=== PATIENT | male | born 2000 | race Two or more races ===

== ENCOUNTER 2024-05-19 13:53 | Outpatient (AMB) | payer OTHER, SELFPAY ==
--- NOTE | 2024-05-19 13:56 | A.OFFVIS_ITS ---
Vital Signs 05/19/24 14:02 Height 5 ft 9 in Weight 149 lb 14.629 oz BMI 22.1 BP 114/73 Blood Pressure Location Lt brachial Position Sitting Pulse 91 Intake Visit Reasons: Crohn's Disease Intake Note: Saleem presents in the office as a new patient for crohns colitis. CC: He is here today to establish new care as the old Dr dont take insurance anymore. Does remicade infusion every 8 weeks Allergies seafood Allergy (Mild, Uncoded 05/19/24 14:06) Unknown HPI Comments Details: 24 y.o M who is here to establish care for crohsn disease. IBD history: Age/year: 11y.o/2000 (dx in [place]) location: colon Prior med: MTX, infliximab Current meds: infliximab 10mg/kg - 04/07/24 last infusion Steroid use: Recurrent. Most recently 2021 Endoscopy: ?EGD/Colonoscopy November, (as documented in [facility] note). Mild gastritis. Mild chronic colitis. T.I bx normal. Surgeries: none Fam hx: none EIM: skin rash dx as eczema Currently reports no abd pain, N/V,D. No blood in stool. Has 2-3 formed BMs per day. Sometimes gets knee pain if lifts heavy Last derm check was early 2023 - discharged due to no lesions. Review of Systems Const All systems reviewed & are unremarkable except as noted in HPI and below Physical Exam Vital Signs: Last Vital Signs Pulse 91 05/19/24 14:02 BP 114/73 05/19/24 14:02 BMI result Body Mass Index 22.1 young male NAD No resp distress abd soft nontender Assessment & Plan Assessment & Plan (1) Crohn's colitis: Code(s): K50.10 - Crohn's disease of large intestine without complications Category: Medical Plan Reviewed with the pt that clinically appears to be in remission. Will need records from [facility] re med and dosage - seems to be on an infliximab biosimilar per his recall. Next dose due 06/02. We will also obtain baseline labs for our records as well as fecal calpro + CRP for disease activity. * Crohns colitis - in clinica remission. - Check CBC, CMP - CRP, fecal calpro - Will check exact med ??biosimilar with prev GI. Next dose due 06/02. * Nutrition: - No evidenec of small bowel disease. - Will check iron, B12 and folate * Bone health: - Hx of steroid use. Check vit D. Consider dexa if never done. * Dysplasia screening: - Overdue for IBD dysplasia screening. Will book colo with chromo if fecal calpro normal i.e disease not active. Follow up 3 months Orders: Orders Comprehensive Met. Panel 05/19/24 K50.10 - Crohn's disease of large intestine without complications IRON PROFILE 05/19/24 K50.10 - Crohn's disease of large intestine without complications TSH reflex Free T4 05/19/24 K50.10 - Crohn's disease of large intestine without complications Hepatitis A IgG 05/19/24 K50.10 - Crohn's disease of large intestine without complications Hepatitis B Surface Antibody 05/19/24 K50.10 - Crohn's disease of large intestine without complications Hepatitis B Surface Antigen 05/19/24 K50.10 - Crohn's disease of large intestine without complications Calprotectin, Fecal 05/19/24 K50.10 - Crohn's disease of large intestine without complications Prothrombin Time INR 05/19/24 K50.10 - Crohn's disease of large intestine without complications Complete Blood Count no Diff 05/19/24 K50.10 - Crohn's disease of large intestine without complications Vitamin D 25-OH Total 05/19/24 K50.10 - Crohn's disease of large intestine without complications Vitamin B12 and Folate 05/19/24 K50.10 - Crohn's disease of large intestine without complications Transglutaminase IgA 05/19/24 K50.10 - Crohn's disease of large intestine without complications Immunoglobulin A 05/19/24 K50.10 - Crohn's disease of large intestine without complications Hepatitis B Core Antibody 05/19/24 K50.10 - Crohn's disease of large intestine without complications Hepatitis C Antibody 05/19/24 K50.10 - Crohn's disease of large intestine without complications C Reactive Protein 05/19/24 K50.10 - Crohn's disease of large intestine without complications T Spot TB 05/19/24 K50.10 - Crohn's disease of large intestine without complications Thiopurine Methyltransferase 05/19/24 K50.10 - Crohn's disease of large intestine without complications Coding Level of Care Code New Pt Level 5 (15017) Diagnoses Crohn's colitis K50.10
[2024-05-19 14:02] VITALS: BP 114/73; PULSE 91; BMI 22.1
== END 2024-05-19 15:15 | disposition home or self-care (01) ==
PROVIDERS: PCP Internal Medicine; Visit Provider Internal Medicine
DX: K50.10 Crohn's disease of large intestine without complications (principal)
CPT/HCPCS: 99204

== ENCOUNTER → 2024-05-19 13:53 | Outpatient (BNVA) | payer OTHER, SELFPAY | PROVIDERS: PCP Internal Medicine; Visit Provider Internal Medicine | DX: K50.10 Crohn's disease of large intestine without complications (principal) | CPT/HCPCS: 99202 ==

== ENCOUNTER 2024-06-21 11:59 | Outpatient (REF) | payer OTHER, SELFPAY ==
[2024-06-21 12:44] LABS: MANUAL DIFF FLAG NO
[2024-06-21 13:44] LABS: Basophils Percent Auto 0.3 % (0-2); Eosinophils Absolute Auto 0.2 X10*3/uL (0.0-0.4); Eosinophils Percent Auto 2.3 % (0-4); Hematocrit 45.8 % (42.0-52.0); Hemoglobin 15.4 g/dl (14.0-18.0); Imm Gran Abs Auto 0.06 X10*3/uL (0.00-0.03); Imm Gran Pct Auto 0.9 % (0.0-0.4); Lymphocytes Percent Auto 30.7 % (20-40); Mean Corpuscular HGB Conc 33.6 g/dl (31.0-36.0); Mean Corpuscular Hemoglobin 29.7 pg (27.0-33.0); Mean Corpuscular Volume 88.4 fL (80.0-98.0); Mean Platelet Volume 10.6 fL (9.4-12.4); Monocytes Absolute Auto 0.7 X10*3/uL (0.1-1.2); Monocytes Percent Auto 10.7 % (2-11); Neutrophils Absolute Auto 3.5 x10*3/uL (2.0-8.3); Neutrophils Percent Auto 55.1 % (45-73); Platelet Count 252 X10*3/uL (160-400); Red Blood Count 5.18 X10*6/uL (4.60-5.80); Red Cell Distribution Width 12.1 % (11.0-16.0); White Blood Count 6.4 X10*3/uL (4.8-10.8)
[2024-06-21 13:47] LABS: Prothrombin Time 11.8 SEC (10.9-12.4)
[2024-06-21 14:06] LABS: C Reactive Protein 0.65 mg/dL (< or = 0.50)
[2024-06-21 14:19] LABS: Alanine Aminotransferase 27 U/L (0-40); Albumin Level 4.1 g/dL (3.5-5.0); Alkaline Phosphatase 124 U/L (39-117); Anion Gap 12 (12-20); Aspartate Amino Transferase 16 U/L (5-37); Bilirubin Total 0.5 mg/dL (0.0-1.0); Blood Urea Nitrogen 9 mg/dL (9-16); Calcium 9.3 mg/dL (8.4-10.2); Carbon Dioxide 28 mmol/L (22-29); Chloride 106 mmol/L (96-108); Estimated Glomerular Filt Rate > 60; Glucose Random 83 mg/dL (60-115); Iron 109 mcg/dL (45-160); Percent Iron Saturation 36 % (15-50); Potassium 4.1 mmol/L (3.3-5.1); Sodium 142 mmol/L (135-145); Total Iron Binding Capacity 302 mcg/dL (228-428); Total Protein 7.7 g/dL (6.5-8.0); Unsaturated Iron Binding 193 ug/dL
[2024-06-21 14:26] LABS: HBc Num1 0.09 S/CO (0.00-0.79); HBsAGNum1 0.29 S/CO (0.00-0.99); Hepatitis A Antibody IgM 0.24 Index (0-0.79); Hepatitis B Core Antibody Nonreactive (Nonreactive); Hepatitis B Surface Antigen Negative (Negative); ~HepC Num1 0.09 S/CO (0.00-0.79); ~Hepatitis A Antibody IgM Nonreactive (Nonreactive); ~Hepatitis C Antibody Nonreactive (Nonreactive)
[2024-06-21 14:31] LABS: TSH reflex Free T4 0.61 uIU/mL (0.32-4.0); Vitamin D 25-OH Total 29.5 ng/mL (>30)
[2024-06-21 14:33] LABS: Vitamin B12 516 pg/mL (200-900)
[2024-06-22 15:54] LABS: IgA 558 mg/dL (47-310); IgG 1421 mg/dL (600-1640); IgM 167 mg/dL (50-300)
[2024-06-24 15:13] LABS: TS Negative Control Passed; TS Panel A 0; TS Panel B 0; TS Positive Control Passed; TSpotTB Negative (Negative)
[2024-06-26 05:38] LABS: Transglutaminase IgA <1.0 U/mL
[2024-06-28 19:02] LABS: TPMT Activity 16
== END 2024-06-21 12:00 | disposition home or self-care (01) ==
LOC: HO.LAB 11:59
PROVIDERS: Visit Provider Internal Medicine
DX: K50.10 Crohn's disease of large intestine without complications (principal)
CPT/HCPCS: 36415; 80053; 82306; 82607; 82784; 83540; 84433; 84443; 85025; 85610; 86140; 86364; 86481; 86704; 86709; 86803; 87340

== ENCOUNTER 2024-10-16 09:00 | Outpatient (RCR) | payer OTHER, SELFPAY ==
[2024-07-11 10:44] VITALS: BMI 22.9
[2024-07-11 10:54] VITALS: BP 101/59; PULSE 86; RESP 16; TEMP 37.2; O2SAT 98
[2024-07-11] MEDS: SODIUM CHLORIDE 0.9% IV (12:10)
[2024-07-11] MEDS: INFLIXIMAB ABDA IV (12:10)
[2024-07-11 12:17] VITALS: BP 105/61; PULSE 73
[2024-07-11 12:27] VITALS: BP 94/62; PULSE 76; RESP 16
[2024-07-11 12:37] VITALS: BP 103/65; PULSE 96
[2024-07-11 12:43] VITALS: BP 95/66; PULSE 78
[2024-07-11 13:17] VITALS: BP 99/57; PULSE 72; RESP 16
[2024-10-16] VITALS (7 sets, daily range): BP systolic 101–121; BP diastolic 55–74; PULSE 54–73; RESP 16; TEMP 37.1; O2SAT 99; BMI 22.6
[2024-10-16 09:19] LABS: C Reactive Protein 0.24 mg/dL (< or = 0.50)
[2024-10-16] MEDS: SODIUM CHLORIDE 0.9% IV (09:35)
[2024-10-16] MEDS: INFLIXIMAB ABDA IV (09:35)
[2024-10-20 14:43] LABS: Anti-Infliximab Antibody 23 AU (<10); Infliximab Drug Level <0.8 mcg/mL
== END 2024-10-31 12:17 | disposition home or self-care (01) ==
LOC: HO.INF 09:00
PROVIDERS: Visit Provider Internal Medicine
DX: K50.10 Crohn's disease of large intestine without complications (principal)
CPT/HCPCS: 36415; 80230; 83520; 86140; 96365; 96366; Q5104

== ENCOUNTER 2024-11-07 14:35 | Outpatient (AMB) | payer OTHER, SELFPAY ==
--- NOTE | 2024-11-07 14:48 | AM.OFFVISNUR ---
Intake Visit Reasons: Humira Teaching Allergies seafood Allergy (Mild, Uncoded 05/19/24 14:06) Unknown Nursing Note Lot # [id number] Medication: Humira [facility] #[id number] Expiration date: August 2025 [employer] Etl Developer: [employer] Dose?80mg Route: Subcut Location given: Right Arm, Upper, Outer Lot #[id number] Medication: Humira [facility] #7410-3441-96 Expiration date: August 2025 Ab Init[employer] Etl Developer: [employer] Dose?: 80mg Route: Subcut Location given: Left Arm, Upper, Outer Office Meds adalimumab 80 mg/0.8 mL subcutaneous pen kit Performing Provider: Zoie Trejo MD Performing Location[place] [facility] Administered by: Saadia Jameson RN on 11/07/24 14:49 Dose Route Admin Location Dispensed Lot Number Expiration Date [facility] Ab Initio Etl Developer 80 mg subcut Left, Upper Arm 1 ea [id number] 09/11/25 0686-4584-64 [employer] [facility] 80 mg subcut Right, Upper Arm 1 ea [id number] 09/11/252420-5344-03 [employer]IE Nor1 [facility] Assessment & Plan Assessment & Plan Orders: Orders AMB Adalimumab Injection Patient Supplied Today K50.10 - Crohn's disease of large intestine without complications Medications: New adalimumab 80 mg (0.8 mL) subcut ONCE 3 ea 0RF K50.10 - Crohn's disease of large intestine without complications Coding Level of Care Code Established Pt Est Pt Level 1 (22356) Patient Type Established Medical Decision Making Straight Forward
== END 2024-11-07 14:56 | disposition home or self-care (01) ==
LOC: HO.HGI 14:36
PROVIDERS: PCP Internal Medicine; Visit Provider Internal Medicine
DX: K50.10 Crohn's disease of large intestine without complications (principal)

== ENCOUNTER → 2024-11-07 14:35 | Outpatient (BNVA) | payer OTHER, SELFPAY | PROVIDERS: PCP Internal Medicine; Visit Provider Internal Medicine | DX: K50.10 Crohn's disease of large intestine without complications (principal); Z79.620 Long term (current) use of immunosuppressive biologic | CPT/HCPCS: 96372; 99211 ==

== ENCOUNTER 2024-12-19 13:47 | Outpatient (AMB) | payer OTHER, SELFPAY ==
--- NOTE | 2024-12-19 13:56 | AM.OFFVISNUR ---
Intake Visit Reasons: Humira Inj Allergies seafood Allergy (Mild, Uncoded 05/19/24 14:06) Unknown Nursing Note Lot # [id number] Medication: Humira 40mg/0.8mL [facility] #2540-8136-64 Expiration date: Apr 2026 Edger Hand: [employer] Dose: 40mg/0.8mL Route: Subcutaneous Location given: Left Arm, Upper, Outer Office Meds adalimumab 80 mg/0.8 mL subcutaneous pen kit Performing Provider: Zoie Trejo MD Performing Location[place] [facility] Administered by: Saadia Jameson RN on 12/19/24 13:56 Dose Route Admin Location Dispensed Lot Number Expiration Date [facility] Edger Hand 40 mg subcut Left Upper Arm, Outer 1 ea [id number] [employer] Total Dispensed Waste 1 ea 0 % Assessment & Plan Assessment & Plan Orders: Orders AMB Adalimumab Injection Patient Supplied Today K50.10 - Crohn's disease of large intestine without complications Coding Level of Care Code Established Pt Est Pt Level 1 (78221) Patient Type Established Medical Decision Making Straight Forward
== END 2024-12-19 14:09 | disposition home or self-care (01) ==
PROVIDERS: PCP Internal Medicine; Visit Provider Internal Medicine Gastroenterology
DX: K50.10 Crohn's disease of large intestine without complications (principal)

== ENCOUNTER → 2024-12-19 13:47 | Outpatient (BNVA) | payer SELFPAY | PROVIDERS: PCP Internal Medicine; Visit Provider Internal Medicine Gastroenterology | DX: K50.10 Crohn's disease of large intestine without complications (principal); Z79.620 Long term (current) use of immunosuppressive biologic | CPT/HCPCS: 96372; 99211 ==

== ENCOUNTER 2025-05-07 14:41 | Outpatient (REF) | payer OTHER, SELFPAY ==
[2025-05-07 16:38] LABS: MANUAL DIFF FLAG NO
[2025-05-07 17:06] LABS: Hematocrit 48.2 % (42.0-52.0); Hemoglobin 15.8 g/dl (14.0-18.0); Imm Gran Abs Auto 0.02 X10*3/uL (0.00-0.03); Imm Gran Pct Auto 0.3 % (0.0-0.4); Lymphocytes Absolute Auto 2.3 X10*3/uL (1.2-4.9); Mean Corpuscular HGB Conc 32.8 g/dl (31.0-36.0); Mean Corpuscular Hemoglobin 30.2 pg (27.0-33.0); Mean Corpuscular Volume 92.0 fL (80.0-98.0); NRBC Abs Auto 0.000 X10*3/uL (0.0-0.012); NRBC Pct Auto 0.0 /100WBC (0.0-0.2); Platelet Count 251 X10*3/uL (160-400); Red Blood Count 5.24 X10*6/uL (4.60-5.80); White Blood Count 7.6 X10*3/uL (4.8-10.8)
[2025-05-07 17:37] LABS: Alanine Aminotransferase 24 U/L (0-40); Albumin Level 4.7 g/dL (3.5-5.0); Alkaline Phosphatase 124 U/L (39-117); Anion Gap 11 (12-20); Aspartate Amino Transferase 15 U/L (5-37); Blood Urea Nitrogen 12 mg/dL (9-16); Calcium 9.6 mg/dL (8.4-10.2); Carbon Dioxide 27 mmol/L (22-29); Chloride 108 mmol/L (96-108); Estimated Glomerular Filt Rate > 60; Iron 74 mcg/dL (45-160); Percent Iron Saturation 24 % (15-50); Potassium 4.4 mmol/L (3.3-5.1); Sodium 142 mmol/L (135-145); Total Iron Binding Capacity 306 mcg/dL (228-428); Total Protein 7.9 g/dL (6.5-8.0); Unsaturated Iron Binding 232 ug/dL
[2025-05-07 17:54] LABS: Ferritin 43 ng/mL (20-250)
[2025-05-07 18:01] LABS: Folate 12.5 ng/mL (> or = 4.0); Vitamin B12 454 pg/mL (200-900)
== END 2025-05-07 14:42 | disposition home or self-care (01) ==
LOC: HO.LAB 14:41
PROVIDERS: PCP Internal Medicine; Visit Provider Internal Medicine
DX: K50.10 Crohn's disease of large intestine without complications (principal)
CPT/HCPCS: 36415; 80053; 80145; 82306; 82607; 82728; 82746; 83520; 83540; 85025; 86140; 99212

== ENCOUNTER → 2025-05-07 14:41 | Outpatient (AMB) | payer OTHER, SELFPAY ==
[2025-05-07 15:32] VITALS: BP 118/68; PULSE 72; BMI 22.1
--- NOTE | 2025-05-07 15:32 | MHC.OFFVIS ---
Vital Signs 05/07/25 15:32 Height 5 ft 9 in Weight 149 lb 14.629 oz BMI 22.1 BP 118/68 Blood Pressure Location Lt brachial Position Sitting Pulse 72 Intake Visit Reasons: follow up crohns Intake Note: Follow-up Crohns feeling ok Ross Lift Operator Required: Yes Ross Lift Operator Services: Ross Lift Operator Present Allergies seafood Allergy (Mild, Uncoded 05/19/24 14:06) Unknown HPI Comments Details: 24 y.o M who is here to establish care for crohns disease. IBD history: Age/year: 11y.o/2000 (dx in [place]) location: colon Prior med: MTX, infliximab (DCed in november 2024 due to ATI) Current meds: Humira 40 q2w Steroid use: Most recently 2021 Endoscopy: ?EGD/Colonoscopy November, (as documented in [facility] note). Mild gastritis. Mild chronic colitis. T.I bx normal. Surgeries: none Fam hx: none EIM: skin rash dx as eczema Currently reports no abd pain, N/V,D. No blood in stool. Has 2-3 formed BMs per day. Sometimes gets knee pain if lifts heavy Last derm check was early 2023 - discharged due to no lesions. 05/07/25: Here for follow up. Was lost to follow up in the past year but was being managed over the phone. Had low IFX levels with high Ab - switched to Humira November 2024. Now reports good response to Humira. No abd pain, N,V, D. No blood in stool. Notices restless legs and cramping in legs at night. Otherwise no joint pains, rashes, visual changes. Cont Humira q2w. Last dose 04/24/25. Review of Systems Const All systems reviewed & are unremarkable except as noted in HPI and below Physical Exam Exam Exam: No apparent distress Nonicteric Abdomen soft, nondistended Alert and oriented x3, normal gait Vital Signs: Last Vital Signs Pulse 72 05/07/25 15:32 BP 118/68 05/07/25 15:32 BMI result Body Mass Index 22.1 Assessment & Plan Assessment & Plan (1) Crohn's colitis: Code(s): K50.10 - Crohn's disease of large intestine without complications Category: Medical Plan Reviewed with the pt that clinically appears to be in remission but overdue for TDM and lab monitoring. Crohns colitis - in clinical remission. - Check CBC, CMP - CRP, fecal calpro - ADA drug and Ab levels Nutrition: - No evidence of small bowel disease. - Will check iron, B12 and folate blayne given report of restless legs Bone health: - Hx of steroid use. Check vit D. Consider dexa. Dysplasia screening: - Overdue for IBD dysplasia screening. Had lapse in insurance earlier this year so never booked. Will schedule this now. PEG prep Rxed and instructions reviewed in Belarusian. Follow up after colo or 3 months whichever is sooner Orders: Orders C Reactive Protein Today K50.10 - Crohn's disease of large intestine without complications Calprotectin, Fecal Today K50.10 - Crohn's disease of large intestine without complications Adalimumab+Ab Today K50.10 - Crohn's disease of large intestine without complications Complete Blood Count Auto Diff Today K50.10 - Crohn's disease of large intestine without complications Comprehensive Met. Panel Today K50.10 - Crohn's disease of large intestine without complications IRON PROFILE Today K50.10 - Crohn's disease of large intestine without complications Vitamin D 25-OH Total Today K50.10 - Crohn's disease of large intestine without complications Ferritin Today K50.10 - Crohn's disease of large intestine without complications Vitamin B12 and Folate Today K50.10 - Crohn's disease of large intestine without complications Referrals GI Procedure Notification K50.10 - Crohn's disease of large intestine without complications Medications: New peg 3350-electrolytes 236-22.74-6.74 -5.86 gram (Golytely) as per split prep instructions, until fecal effluent is clear 240 mL PO Q10M 4,000 mL 0RF colonoscopy Coding Level of Care Code Complex visit Add On G2211 Diagnoses Crohn's colitis K50.10
--- OUTSIDE RECORDS SUMMARY | 2025-05-07 19:32 | XMS_ITS | Clinical Summary ---
Author Organization [facility] Address [address] [place] [id number] Phone Care Team Providers Care Assembler Bonding Name Role Phone Calin Beltran MD Primary Care Provider [phone] Allergies No known active allergies Medications inFLIXimab (REMICADE) 100 mg injectionIndications: Crohn's disease without complication, unspecified gastrointestinal tract location,Infliximab (Remicade) long-term use Taking once approved. 0 Active Active Problems Problem Noted Date Diagnosed Date Crohn's disease without complication 02/17/2017 Crohn's disease of both smal l and large intestine without complication 2017 Infliximab (Remicade) long-term use 2017 Social History Tobacco Use Types Packs/Day Years Used Date Smoking Tobacco: Never Alcohol Use Standard Drinks/Week Comments Never 0 (1 standard drink = 0.6 oz pur e alcohol) Education Answer Date Recorded Are you interested in more education? Not on forrest e 10/09/2022 Are you concerned about learning? Not on file 10/09/2022 No 10/09/2022 No 10/09/2022 Digital Access Answer Date Recorded No 11/09/2022 No 11/09/2022 Reliable internet access at home? Not on file 11/09/2022 Device with a working camera? Not on file Sex and Gender Information Value Date Recorded Sex Assigned at Male 11/07/2019 1:39 PM EDT Legal Sex Male 4:47 PM EDT Gender Identity Male 11/07/2019 1:39 PM EDT Sexual Orientation Bisexual 11/07/2019 1: 39 PM EDT Last Filed Vital Signs Vital Sign Reading Time Taken Comments Blood Pressure 110/62 02/06/2020 2:26 PM EDT Pulse 64 02/06/2020 2:26 PM EDT Temperature 36.6 C (97.9 F) 02/06/2020 2:26 PM EDT Respiratory Rate 20 02/06/2020 2:26 PM EDT Oxygen Saturation - - Inhaled Oxygen Concentration - - Weight 77.4 kg (170 lb 9.6 oz) 02/06/2020 2:26 P M EDT Height 173 cm (5' 8.11 ) 02/06/2020 2:26 PM EDT Body Mass Index 25.86 02/06/2020 2:26 PM EDT Plan of Treatment Health Maintenance Due Date Last Done Comments Adult Td,Tdap Booster 2000 DEPRESSION SCREENING 2012 SMOKING Hx and SMOKELESS TOB ACCO SCREENING 02/08/2013 HPV VACCINES (1 - Male 3-dos e series) 02/08/2015 HEPATITIS C SCREENING 02/08/2018 HIV ONE-TIME SCREENING (18-6 5 YEARS) 02/08/2018 INFLUENZA VACCINE (#1) 2025 COVID-19 VACCINE (1 - 2024-2 6 season) 2025 HEPATITIS A VACCINES Aged Out No long er eligible based on patient's age to complete this topic HIB VACCINES Aged Out No longer eligi ble based on patient's age to complete this topic MENINGOCOCCAL VACCINES (ACWY) Aged Out No longer eligible based on patient's age to complete this topic MENINGOCOCCAL VACCINES (B) Aged Out N o longer eligible based on patient's age to complete this topic PNEUMOCOCCAL VACCINES (0-49 years) Aged Out No longer eligible based on patient's age to complete this topic Medical [place] [id number] [facility] [address] [place] [address] [place] [address] [place] [address] [place] [address] [facility] [place] [address] [place] [address] [facility] Care Teams Assembler Bonding Relationship Specialty Start Date End Date Calin Beltran MD [address] [place] [phone] PCP - General Pediatrics 01/09/17 Additional Source Comments The information contained in this document represents components of the legal health record. It is not the complete legal health record.[facility]
== END ==
LOC: HO.HGI 14:42
PROVIDERS: PCP Internal Medicine; Visit Provider Internal Medicine
DX: K50.10 Crohn's disease of large intestine without complications (principal)
CPT/HCPCS: 99214